=== PATIENT | female | born 1995 | race Caucasian/White ===

== ENCOUNTER 2023-06-26 21:39 | Emergency (ER) | payer OTHER ==
[2023-06-26 21:57] VITALS: BP 117/69; PULSE 88; RESP 18; TEMP 98.3; BMI 48.8
[2023-06-27] MEDS ORDERED: KETOROLAC TROMETHAMINE 30 MG/1 ML VIAL IM ONE (01:26)
[2023-06-27] MEDS ORDERED: BACITRACIN 0.9 GM PACKET TP ONE (01:29)
[2023-06-27] MEDS ORDERED: BACITRACIN ZINC 15 GM TUBE TOPICAL OINTMENT ONE (01:35)
== END 2023-06-27 01:48 | disposition home or self-care (01) ==
LOC: JERFT 21:39
PROC: 3E0233Z Introduction of Anti-inflammatory into Muscle, Percutaneous Approach (ICD-10-PCS; principal; 2023-06-27)
DX: T21.22XA Burn of second degree of abdominal wall, initial encounter (principal); T31.0 Burns involving less than 10% of body surface; X10.2XXA Contact with fats and cooking oils, initial encounter; Y93.G3 Activity, cooking and baking
CPT/HCPCS: 99284-25

== ENCOUNTER 2025-05-01 18:28 | Emergency (ER) | payer OTHER ==
[2025-05-01 18:40] VITALS: PULSE 84; RESP 20; TEMP 97.9; BMI 57.6
[2025-05-01 18:42] VITALS: BP 136/98
[2025-05-01 21:47] LABS: HCV DIAGNOSTIC IN-HOUSE W/RFLX NON-REACTIVE (NONREACTIVE)
[2025-05-01 21:48] LABS: HIV INTERPRETATION NEGATIVE (NEGATIVE)
== END 2025-05-01 23:00 | disposition home or self-care (01) ==
LOC: JER 18:28
DX: O20.9 Hemorrhage in early pregnancy, unspecified (principal); Z3A.00 Weeks of gestation of pregnancy not specified
CPT/HCPCS: 36415; 76817-TC; 84702; 86803; 86850; 86900; 86901; 87389; 99284-25